=== PATIENT | male | born 1980 | race Caucasian/White ===

== ENCOUNTER 2021-04-26 17:55 | Emergency (ER) | payer MEDICARE, SELFPAY ==
--- NOTE | 2021-04-26 | ECG_ITS ---
Test Reason : chest pain Blood Pressure : / mmHG Vent. Rate : 072 BPM Atrial Rate : 072 BPM P-R Int : 120 ms QRS Dur : 098 ms QT Int : 390 ms P-R-T Axes : 031 055 046 degrees QTc Int : 427 ms Normal sinus rhythm Normal ECG When compared with ECG of 18-JAN-2013 23:09, QT has lengthened Referred By: Generic ED Physician Electronically Signed By:NESS LINTON MD
[2021-04-26 19:46] VITALS: BP 142/83; PULSE 84; RESP 18; TEMP 36.6; O2SAT 97; BMI 25.8
[2021-04-26 20:24] LABS: MANUAL DIFF FLAG NO
[2021-04-26 20:25] LABS: COVID-19 Test Negative (Negative)
[2021-04-26 20:27] LABS: Basophils Percent Auto 0.2 % (0-2); Eosinophils Absolute Auto 0.2 X10*3/uL (0.0-0.4); Eosinophils Percent Auto 3.5 % (0-4); Hematocrit 37.5 % (42.0-52.0); Hemoglobin 12.4 g/dl (14.0-18.0); Imm Gran Abs Auto 0.01 X10*3/uL (0.00-0.03); Imm Gran Pct Auto 0.2 % (0.0-0.4); Lymphocytes Absolute Auto 2.7 X10*3/uL (1.2-4.9); Mean Corpuscular HGB Conc 33.1 g/dl (31.0-36.0); Mean Corpuscular Volume 96.9 fL (80.0-98.0); Mean Platelet Volume 12.1 fL (9.4-12.4); Monocytes Absolute Auto 0.5 X10*3/uL (0.1-1.2); Monocytes Percent Auto 8.8 % (2-11); Neutrophils Absolute Auto 2.6 x10*3/uL (2.0-8.3); Neutrophils Percent Auto 42.3 % (45-73); Platelet Count 128 X10*3/uL (160-400); Red Blood Count 3.87 X10*6/uL (4.60-5.80); Red Cell Distribution Width 12.1 % (11.0-16.0)
[2021-04-26 20:44] LABS: Alanine Aminotransferase 105 U/L (0-40); Albumin Level 4.2 g/dL (3.5-5.0); Alkaline Phosphatase 113 U/L (39-117); Anion Gap 9 (12-20); Aspartate Amino Transferase 40 U/L (5-37); Bilirubin Total 0.3 mg/dL (0.0-1.0); Blood Urea Nitrogen 15 mg/dL (9-16); Calcium 9.1 mg/dL (8.4-10.2); Carbon Dioxide 31 mmol/L (22-29); Chloride 106 mmol/L (96-108); Creatinine Clr Calc Pharmacy 125.7; Estimated Glomerular Filt Rate > 60; Glucose Random 94 mg/dL (60-115); Potassium 4.1 mmol/L (3.3-5.1); Sodium 142 mmol/L (135-145); Total Protein 7.5 g/dL (6.5-8.0)
[2021-04-26 20:45] LABS: Troponin-I High Sensitivity < 3.5 ng/L (<3.5-35.0)
== END 2021-04-27 02:28 | disposition left against medical advice (07) ==
PROVIDERS: Emergency Provider Emergency Medicine; PCP Family Medicine
DX: R07.89 Other chest pain (principal); Z20.822 Contact with and (suspected) exposure to COVID-19
CPT/HCPCS: 80053; 84484; 85025; 87635; 93005; 99283

== ENCOUNTER 2021-11-17 23:06 | Emergency (ER) | payer MEDICARE, MEDICAID, SELFPAY ==
--- NOTE | ~2021-11-17 | XR_ITS ---
EXAMINATION: XR CHEST CLINICAL INFORMATION: Left chest pain. Evaluate for pneumothorax. COMPARISON: 10/08/2014 TECHNIQUE: 2 views of the chest were obtained. FINDINGS: There are a few vague streaky opacities within the bilaterally. No pleural effusion or pneumothorax. Normal heart size and pulmonary vascularity. No acute osseous abnormalities. XR/XR chest 2V IMPRESSION: There are a few subtle streaky opacities within the lower lungs bilaterally which could represent subsegmental atelectasis or a very mild atypical pneumonitis.
--- NOTE | 2021-11-17 23:09 | ECG_ITS ---
Test Reason : CHEST PAIN Blood Pressure : / mmHG Vent. Rate : 065 BPM Atrial Rate : 065 BPM P-R Int : 122 ms QRS Dur : 086 ms QT Int : 374 ms P-R-T Axes : 021 057 040 degrees QTc Int : 388 ms Normal sinus rhythm Normal ECG When compared with ECG of 26-APR-2021 20:07, No significant change was found Referred By: Generic ED Physician Electronically Signed By:PEACE ZAPATA
[2021-11-17 23:11] VITALS: BP 144/73; PULSE 74; O2SAT 98
[2021-11-17 23:13] VITALS: BMI 24.5
--- NOTE | 2021-11-17 23:20 | ED.CHESTPAIN ---
HPI - Chest Pain General Chief Complaint: Chest Pain Stated Complaint: cp Time Seen by Provider: 11/17/21 23:20 Source: patient Mode of arrival: EMS Limitations: no limitations History of Present Illness HPI narrative: 41-year-old male who presents emergency department for evaluation of left-sided chest pain. Patient is currently at [facility] for rehab and was noted to have ST segment elevation on his EKG with chest pain therefore is referred to the emergency department The patient states that he has had the chest pain for approximately 2 days. He is not sure of the onset of the pain but he states that he was sleeping on his father sofa in and he thinks that he may have injured his left chest. He states the pain is constant. He describes the pain as a sharp pain which gets worse if he pushes on his left chest. The pain does not radiate to his neck, jaw, arms or back. He denied associated shortness of breath, dyspnea on exertion, lightheadedness, dizziness or diaphoresis. States that the pain is 8/10 at its worst. The patient states that he smokes $20 worth of crack cocaine 2 to 3 times a week. He states that he is currently in the [facility] facility for detox and rehabilitation treatment. He states that he has been there for approximately 2 days and the pain is been present since he was admitted to the facility. The he denied fever, chills, rhinorrhea, sore throat, cough, abdominal pain. MD complaint: chest pain Onset (ago): day(s) (2) Timing of current episode: constant Prior episodes: No Onset: other (Pain started after he slept on his father sofa) Pain location: left chest Pain radiation: none Severity: severe Pain scale (0-10): 8 Quality: sharp Relieving factors: nothing Exacerbating factors: other (Worse if he pushes on his left chest) Context: other (Patient smokes crack cocaine 2 to 3 times a week) Treatment prior to arrival: none Risk Factors Coronary artery disease risk factors: none Related Data Allergies Allergy/AdvReac Type Severity Reaction Status Date / Time No Known Allergies Allergy Verified 04/26/21 19:45 Review of Systems Review of Systems: Yes all other systems are reviewed and are negative PMFSH Past Medical History [facility] Narrative: Past medical history: None. Past surgical history: None. Social history: He smokes 1/2-1 pack of cigarettes per day times 2-3 years, denies alcohol use, he smokes crack cocaine 2 to 3 times a week. He is currently in rehab at [facility] Social History Social History Advance Directives: No Physical Exam Vital Signs: Vital Signs: Last Vital Signs Temp 98.5 F 11/17/21 23:21 Pulse 75 11/17/21 23:21 Resp 16 11/17/21 23:21 BP 140/74 H 11/17/21 23:21 Pulse Ox 97 11/17/21 23:21 O2 Del Method 11/17/21 23:21 BMI result Body Mass Index 24.5 Const: Other: Awake, alert, male patient, very pleasant and cooperative, he does not appear to be in distress, he is thin and his BMI is 24.5 HEENT: Head: Yes normal to inspection, Yes normocephalic and Yes atraumatic Ears: external ears normal General nose exam: Normal external nose present Face and sinus: Yes normal facial exam Mouth: Normal oral and palatal mucosa present Throat: Yes posterior oropharynx normal Eyes: General: appearance normal, both eyes and all related structures Pupils: Equal, round and reactive pupils present Neck: Neck: Yes normal visual inspection, Yes no lymphadenopathy, Yes trachea midline and Yes supple Chest: Chest palpation & inspection: normal inspection of the chest and tenderness (Moderate left chest wall tenderness) Resp: Effort & Inspection: normal respiratory effort and able to speak in complete sentences Auscultation: clear to auscultation bilaterally Cardio: Rate: regular rate Rhythm: regular rhythm Heart sounds: S1 normal heart sound present, S2 normal heart sound present and no murmurs GI: Inspection: Yes normal to inspection Palpation (GI): Soft to palpation, nontender and no guarding Auscultation: normal bowel sounds : General: Yes no CVA tenderness Back/Spine/Pelvis: Back: no CVA tenderness Skin: General skin exam: no rashes or lesions noted Neuro: Cranial nerves: Yes CN's II-XII intact bilaterally and Yes Equal, round and reactive pupils present Cognition (Neuro): normal cognition Motor exam (neuro): 5/5 motor strength present throughout Extrem: General: Yes normal to inspection Psych: Appearance: grossly normal Speech and movement: Normal speech and movement present Affect: normal affect Attitude: cooperative Thought process: Normal thought process present Thought content: Normal thought content present Course Course Course Narrative: 41-year-old male who is currently at [facility] for rehab for crack cocaine use. Patient states that he has been at [facility] for 2 days. Prior to that he was smoking crack cocaine 2 to 3 times a week. Patient states he has had a constant left-sided sharp chest pain which is 8/10 at its worse. The pain is been present for 2 days and he states that it was present when he was initially admitted to [facility]. Apparently the patient had an EKG and there was concern for ST segment elevation therefore he was sent to the emergency department for evaluation. Patient states that he slept on his father weia he believes that he may have injured his chest secondary to the sleeping arrangement. States the pain is worse if he pushes on his left chest. He had no other concerning associated symptoms such as fever, chills, shortness of breath, dyspnea on exertion, lightheadedness, dizziness, diaphoresis or radiation of the pain to his neck, jaw, back or arms. Patient was ordered to get 0041: Laboratory evaluation: Low platelet count a [id number] is chronic, elevated bicarb 33, elevated AST and ALT 40 and 93. High sensitivity troponin I below detectable limits. Twelve EKG: Normal sinus rhythm rate of 65, normal intervals, J-point elevation with peaked T-waves with no acute abnormalities. Radiology evaluation: Two view chest x-ray interpretation by radiologist as follows: IMPRESSION: There are a few subtle streaky opacities within the lower lungs bilaterally which could represent subsegmental atelectasis or a very mild atypical pneumonitis. Dictated By: Wilmer Tai MD I did review this x-ray and I do not think that the patient has pneumonia based on the x-ray and also based on his clinical presentation. The patient's pain is most likely musculoskeletal. Therefore he was treated with Toradol 30 mg IV. 0128: Patient feels better after receiving the IV Toradol. Patient was discharged back to [facility]. He was advised to take ibuprofen Tylenol for his pain. MDM - Chest Pain Medical Records Data Attestation: I reviewed the patient's medical records. Lab Data Attestation: I reviewed the patient's lab results. Result diagrams: 11/17/21 23:28 11/17/21 23:28 Labs: Lab Results 11/17/21 11/17/21 11/17/21 Range/Units 23:28 23:28 23:28 WBC 4.9 (4.8-10.8) X10*3/uL RBC 4.17 L (4.60-5.80) X10*6/uL Hgb 13.5 L (14.0-18.0) g/dl Hct 41.6 L (42.0-52.0) % MCV 99.8 H (80.0-98.0) fL MCH 32.4 (27.0-33.0) pg MCHC 32.5 (31.0-36.0) g/dl RDW 11.7 (11.0-16.0) % Plt Count 107 L (160-400) X10*3/uL MPV 13.1 H (9.4-12.4) fL Immature Gran % (Auto) 0.2 (0.0-0.4) % Neut % (Auto) 29.1 L (45-73) % Lymph % (Auto) 53.4 H (20-40) % Elbert % (Auto) 9.6 (2-11) % Eos % (Auto) 7.3 H (0-4) % Baso % (Auto) 0.4 (0-2) % Lymph # (Auto) 2.6 (1.2-4.9) X10*3/uL Elbert # (Auto) 0.5 (0.1-1.2) X10*3/uL Eos # (Auto) 0.4 (0.0-0.4) X10*3/uL Baso # (Auto) 0.0 (0.0-0.2) X10*3/uL Abs Immat Gran (auto) 0.01 (0.00-0.03) X10*3/uL Absolute Neuts (auto) 1.4 L (2.0-8.3) x10*3/uL Absolute Nucleated RBC 0.000 (0.0-0.012) X10*3/uL Nucleated RBC % (auto) 0.0 (0.0-0.2) /100WBC Sodium 142 (135-145) mmol/L Potassium 4.7 (3.3-5.1) mmol/L Chloride 101 (96-108) mmol/L Carbon Dioxide 33 H (22-29) mmol/L Anion Gap 13 (12-20) BUN 14 (9-16) mg/dL Creatinine 0.94 (0.5-1.4) mg/dL Estim Creat Clear Calc 104.6 Estimated GFR > 60 Random Glucose 109 (60-115) mg/dL Calcium 9.1 (8.4-10.2) mg/dL Total Bilirubin 0.2 (0.0-1.0) mg/dL AST 40 H (5-37) U/L ALT 93 H (0-40) U/L Alkaline Phosphatase 89 D (39-117) U/L Troponin I High Sens < 3.5 (<3.5-35.0) ng/L Total Protein 7.4 (6.5-8.0) g/dL Albumin 4.3 (3.5-5.0) g/dL ECG Data ECG #1: Attestation: I personally reviewed and interpreted this ECG as follows: Interpretation: 0047: Normal sinus rhythm rate of 65, normal CT interval, QRS duration QTC interval, no Q-waves, no ST segment elevation or depression, the patient does have J-point elevation with peaked T-waves which I believe are normal and secondary to the patient's thin body habitus . There is no old EKG for comparison. Discharge Plan Discharge Clinical Impression: Acute chest wall pain Patient Disposition: Home, Self-Care Instructions: Chest Wall Pain (ED) Additional Instructions: Your EKG is unremarkable. Your laboratory evaluation did reveal mild elevation in your liver tests the AST and ALT, but you have had similar elevations in the past. Your platelet count was low but again you have had similar low platelet counts in the past as well. Your high sensitivity troponin I was below detectable limits which is reassuring suggesting that your pain is not caused by myocardial infarction or myocardial injury. You did have tenderness with palpation of the left side of your chest I suspect that your pain is due to muscle pain. You received Toradol 30 mg IV and in this did improve your pain. Take ibuprofen 200 mg pills, 3 pills every 6 hours as needed for pain. Take Tylenol (acetaminophen) 500 mg pills, 2 pills every 4 to 6 hours as needed for pain. Your being discharged back to [facility]. Follow-up with your doctor in 2 days. Please return to the emergency department if your symptoms get worse or if you develop any symptoms that are concerning to you.
[2021-11-17 23:21] VITALS: BP 140/74; PULSE 75; RESP 16; TEMP 36.9; O2SAT 97
[2021-11-17 23:33] LABS: MANUAL DIFF FLAG NO
[2021-11-17 23:35] LABS: Basophils Percent Auto 0.4 % (0-2); Eosinophils Absolute Auto 0.4 X10*3/uL (0.0-0.4); Eosinophils Percent Auto 7.3 % (0-4); Hematocrit 41.6 % (42.0-52.0); Hemoglobin 13.5 g/dl (14.0-18.0); Imm Gran Abs Auto 0.01 X10*3/uL (0.00-0.03); Imm Gran Pct Auto 0.2 % (0.0-0.4); Lymphocytes Absolute Auto 2.6 X10*3/uL (1.2-4.9); Lymphocytes Percent Auto 53.4 % (20-40); Mean Corpuscular HGB Conc 32.5 g/dl (31.0-36.0); Mean Corpuscular Hemoglobin 32.4 pg (27.0-33.0); Mean Corpuscular Volume 99.8 fL (80.0-98.0); Mean Platelet Volume 13.1 fL (9.4-12.4); Monocytes Absolute Auto 0.5 X10*3/uL (0.1-1.2); Monocytes Percent Auto 9.6 % (2-11); Neutrophils Absolute Auto 1.4 x10*3/uL (2.0-8.3); Neutrophils Percent Auto 29.1 % (45-73); Platelet Count 107 X10*3/uL (160-400); Red Blood Count 4.17 X10*6/uL (4.60-5.80); Red Cell Distribution Width 11.7 % (11.0-16.0); White Blood Count 4.9 X10*3/uL (4.8-10.8)
[2021-11-17 23:55] LABS: Alanine Aminotransferase 93 U/L (0-40); Albumin Level 4.3 g/dL (3.5-5.0); Alkaline Phosphatase 89 U/L (39-117); Anion Gap 13 (12-20); Aspartate Amino Transferase 40 U/L (5-37); Bilirubin Total 0.2 mg/dL (0.0-1.0); Blood Urea Nitrogen 14 mg/dL (9-16); Calcium 9.1 mg/dL (8.4-10.2); Carbon Dioxide 33 mmol/L (22-29); Chloride 101 mmol/L (96-108); Creatinine Clr Calc Pharmacy 104.6; Estimated Glomerular Filt Rate > 60; Glucose Random 109 mg/dL (60-115); Potassium 4.7 mmol/L (3.3-5.1); Sodium 142 mmol/L (135-145); Total Protein 7.4 g/dL (6.5-8.0)
[2021-11-17 23:59] LABS: Troponin-I High Sensitivity < 3.5 ng/L (<3.5-35.0)
[2021-11-18] MEDS: Ketorolac Tromethamine 15 MG/ML VIAL 30 MG IVPUSH (00:59)
--- NOTE | 2021-11-18 01:37 | PC.NURSE ---
contact made to layo JEFF at [phone], per landon andersen, pt is not welcome back and must reregister in am to see if bed is available. confirmed that pt is not remanded to facility and is able to be d/c home should he desire it.
== END 2021-11-18 01:48 | disposition home or self-care (01) ==
PROVIDERS: Emergency Provider Emergency Medicine Emergency Medical Services
DX: R07.89 Other chest pain (principal); F17.210 Nicotine dependence, cigarettes, uncomplicated
CPT/HCPCS: 36415; 71046; 80053; 84484; 85025; 93005; 96374; 99284; J1885

== ENCOUNTER 2023-01-30 10:28 | Outpatient (REF) | payer MEDICARE, MEDICAID, SELFPAY ==
[2023-01-31 21:53] LABS: Lyme Abs Screen <0.90 index
== END 2023-01-30 10:29 | disposition home or self-care (01) ==
LOC: HO.CHCLDS 10:28
PROVIDERS: Visit Provider Student in an Organized Health Care Education/Training Program
DX: S70.361A Insect bite (nonvenomous), right thigh, initial encounter (principal); W57.XXXA Bitten or stung by nonvenomous insect and other nonvenomous arthropods, initial encounter
CPT/HCPCS: 36415; 86617; 86618

== ENCOUNTER 2024-07-19 11:56 | Emergency (ER) | payer MEDICARE, MEDICAID, SELFPAY ==
[2024-07-19 12:01] VITALS: BP 120/78; PULSE 101; RESP 18; TEMP 36.8; O2SAT 97; BMI 30.8
--- NOTE | 2024-07-19 12:01 | ED.URI ---
HPI - URI/Sore Throat General Chief Complaint: Upper Respiratory Symptoms Stated Complaint: diff swallowing, ear pain Time Seen by Provider: 07/19/24 12:05 Source: patient Mode of arrival: ambulatory Limitations: no limitations History of Present Illness ED Provider: ajit alejo np HPI Narrative: patient is a 44-year-old male presents emergency department for evaluation endorses 2 days with bilateral ear pain sore throat, painful swallowing. has taken OTC cold medication without much improvement. Denies sick contacts, any drainage from the ear, fevers, chills, headache, dizziness, neck pain, neck stiffness, chest pain, shortness of breath, difficulty breathing, cough, nausea, vomiting, abdominal pain, numbness or tingling of the extremities, genitourinary symptoms. Related Data Previous Rx's ?Medication ?Instructions ?Recorded amoxicillin 875 mg tablet 875 mg PO BID #14 tabs 07/19/24 Allergies Allergy/AdvReac Type Severity Reaction Status Date / Time No Known Allergies Allergy Verified 07/19/24 12:02 Review of Systems Review of Systems: Yes all other systems are reviewed and are negative [facility] Past Medical History Attestation statement: The following information was validated with the patient. Source: old records reviewed Social History Social History Smoked in Last 30 Days: No Use of substances other than those prescribed or required for medical reasons: No Advance Directives: No Advance Directives Information Provided: No Do you have a plan to hurt others: No Plan Physical Exam Vital Signs: Vital Signs: Last Vital Signs Temp 98.3 F 07/19/24 12:01 Pulse 101 H 07/19/24 12:01 Resp 18 07/19/24 12:01 BP 120/78 07/19/24 12:01 Pulse Ox 97 07/19/24 12:53 O2 Del Method Room Air 07/19/24 12:53 BMI result Body Mass Index 30.8 Appearance: Alert.?Oriented to person, place and time. No acute distress.?Normal affect. Eyes: Pupils equal, round and reactive to light.? ENT: TM normal on the left, right TM erythematous and bulging with an opacity. no mastoid tenderness. Pharynx is erythematous without tonsillar hypertrophy or exudates. Uvula is midline. No trismus. No drooling. No palatal petechiae? Neck: Normal inspection.? Neck supple.??No cervical adenopathy CVS: Heart sounds normal. Normal heart rate and rhythm.? Pulses normal.?? Respiratory: No respiratory distress.? Lung sounds clear to auscultation bilaterally?? Abdomen: Soft and non-tender. Normoactive bowel sounds. Skin: Skin warm and dry.? Normal skin color.? ? Extremities: No lower extremity edema.? Neuro: Moves all extremities spontaneously. Sensation intact bilaterally. No motor deficits. Ambulates with normal steady gait. Medical Decision Making Medical Decision Making [facility] Narrative: Patient is a 44-year-old male with no reported past medical history, presenting for evaluation of sore throat and bilateral ear pain as per HPI COVID-19 /influenza/ RSV testing is negative. Group a strep testing is negative. Examination is not consistent with [employer], appears consistent with a mild pharyngitis. His right acute otitis media without evidence of TM rupture or mastoid tenderness to suggest acute mastoiditis. Overall he is Well-appearing, nontoxic, afebrile, no tachypnea/hypoxia. Speaking clear full sentences, ambulatory with steady gait. Discussed conservative treatment including rest, hydration, Tylenol/ibuprofen as needed for fever and body aches, saline nasal spray, humidifier, [id number] cold medication. Advised to follow-up with primary care provider as needed, discussed reasons to return back to the emergency department. All questions were answered. Patient discharged home in stable condition. Differential Diagnosis Differential Diagnoses: The differential diagnosis associated with the presentation includes ( See narrative above) Admission/Observation Consideration of admission/observation: Escalation of care including admission/observation considered ( see narrative above) Lab Data [facility] Lab Attestation statement: I reviewed the patient's lab results. ( see narrative above) Labs: Lab Results 07/19/24 Range/Units 13:04 Influenza Type A (PCR) NEGATIVE (Negative) Influenza Type B (PCR) NEGATIVE (Negative) RSV RNA Qual (PCR) NEGATIVE (Negative) SARS-CoV-2 RNA (RT-PCR) NEGATIVE (Negative) S. pyogenes GrpA KETTY Negative (Negative) Prescription Management I considered prescription management with: Pain Medication ( acetaminophen/ibuprofen) Discharge Plan Discharge Clinical Impression: Pharyngitis Acute otitis media Qualifiers: Otitis media type: suppurative Laterality: right Recurrence: non-recurrent Spontaneous tympanic membrane rupture: without spontaneous rupture Qualified Code(s): H66.001 - Acute suppurative otitis media without spontaneous rupture of ear drum, right ear Patient Disposition: Home, Self-Care Instructions: Pharyngitis (ED), Ear Infection (ED) Additional Instructions: Be sure to rest, stay well hydrated drinking plenty of fluids, eat small frequent meals. Tylenol/ibuprofen can be used as needed for fever/pain. [id number] cold medications may be helpful as well for symptoms. Saline nasal spray, humidifier may be helpful for nasal congestion. do not insert anything into the ear canals such as Q-tips as this may increase the risk of rupture to the ear drum, avoid submerging the head underwater such as during swimming /scuba diving. Saltwater gargles and sore throat lozenges /spray from the pharmacy may be helpful as well. Complete the entire course of antibiotics as prescribed do not stop taking earlier skip any doses even if you begin to feel better. You may return to the emergency department with any new or worsening symptoms or concerns. Follow-up with your primary care provider as needed. Should remain out of school/ work until symptoms have resolved and have been without a fever for 24 hours without the use of Tylenol or ibuprofen. Prescriptions: New amoxicillin 875 mg tablet 875 mg PO BID Qty: 14 0RF Referrals: Richi Warren MD [Primary Care Provider] - Print Language: Welsh
[2024-07-19 12:53] VITALS: O2SAT 97
[2024-07-19 13:18] LABS: IDNOW Serial# 6674DD1D; Strep A Nucleic Acid Negative (Negative)
[2024-07-19 13:47] LABS: Influenza A PCR NEGATIVE (Negative); Influenza B PCR NEGATIVE (Negative); Resp Syncy Virus RNA Qual PCR NEGATIVE (Negative); SARS COV2 PCR INHOUSE NEGATIVE (Negative)
[2024-07-19 14:05] VITALS: BP 110/82; PULSE 96; RESP 18; TEMP 36.8; O2SAT 99
[2024-07-19 14:06] VITALS: BP 110/82; PULSE 96; RESP 20; TEMP 36.8; O2SAT 99
== END 2024-07-19 14:07 | disposition home or self-care (01) ==
PROVIDERS: Nurse Practitioner Family; Emergency Provider Internal Medicine; PCP Internal Medicine
DX: H66.001 Acute suppurative otitis media without spontaneous rupture of ear drum, right ear (principal); H92.03 Otalgia, bilateral; J02.9 Acute pharyngitis, unspecified; Z03.818 Encounter for observation for suspected exposure to other biological agents ruled out
CPT/HCPCS: 0241U; 87651; 99283; 99285